=== PATIENT | male | born 1955 | race Caucasian/White ===

== ENCOUNTER 2017-11-12 06:30 | Day surgery (SDC) | payer OTHER ==
[~2017-11-12] VITALS: Ht 177.8 cm; Wt 85.7 kg
[~2017-11-12 06:30] MED LIST: COZAAR100 MG PO; LATANOPROST 0.7.5 ML OP; LIPITOR20 MG PO; LOVASTATIN10 MG PO; NORCO 5-325 TA1 EACH PO
--- NOTE | 2017-11-12 08:21 | NUR ---
11/12/17 0821 Letty Pantoja 0817-PATIENT ARRIVED TO PACU ON 3L NC O2 SAT 95% PATIENT LAYING LEFT LATERAL. ABDOMEN SOFT AND ROUND. PATIENT NONAROUSABLE, IS HARD OF HEARING. RR EVEN.
--- NOTE | 2017-11-12 09:35 | OR ---
[facility] [address], [place] [address] Signed DATE OF OPERATION: 11/12/2017 SURGEON: Karen Siu MD PREOPERATIVE DIAGNOSIS: Laparoscopic low anterior resection for diverticular disease in 2012. POSTOPERATIVE DIAGNOSES: 1. Minimal left-sided diverticulosis. 2. Minimal external hemorrhoids. 3. Colorectal anastomosis at 25 cm. 4. Question bilateral prostate nodules. PROCEDURE: Colonoscopy without biopsy. ESTIMATED BLOOD LOSS: None. INDICATIONS: Elizabet is a 62-year-old gentleman, who I met back in 2007 for his diverticular disease. He continued to have intermittent episodes of diverticular disease, so he underwent a laparoscopic low anterior resection in [address] Jae Corona in [place], [place]. He said he has done wonderful ever since. His bowel movements are fine and he has no family history of colon cancer or polyps. In the meantime, he returns for a followup screening colonoscopy. I gave him a pamphlet in the office on colonoscopy. We looked at that together along with the risks including, but not limited to gas bloating, crampy abdominal pain, bleeding, perforation, requiring surgery, and missed diagnosis. We also discussed the need for IV conscious sedation. He had expressed understanding and wish to proceed. PROCEDURE NOTE: Elizabet was taken into our endoscopy suite and placed in the left lateral decubitus position. He was given IV sedation with 6 mg of Versed and 150 mcg of fentanyl. A digital rectal exam was performed and his prostate is not particularly enlarged. It is a little indurated. He has what feels like two ridges on both sides of his prostate, which may be fine, but he probably should review that and his PSA level with his primary care provider. He also has some small external hemorrhoid tissue. The adult colonoscope was then introduced and advanced under direct visualization all the way into the cecum without difficulty. His prep was quite good. The scope was slowly withdrawn Electronically Signed By: KAREN SIU MD 11/12/17 0935 PATIENT NAME: ELIZABET FENG OPERATIVE REPORT DATE OF : 57 REPORT #: [id number] PHYSICIAN: KAREN SIU MD PCP: NO PRIMARY CARE PHYSICIAN REPORT IS CONFIDENTIAL AND NOT TO BE RELEASED WITHOUT AUTHORIZATION [facility] [address], [place] [address] Signed and we took pictures throughout for photodocumentation. He has just a few scattered diverticula in that remaining left colon. The anastomosis is at 25 cm. It is a circular stapled anastomosis. It is well healed. There is no granulation tissue. There is no ulceration, no stricture. The rectum itself was unremarkable. Upon retroflexion of the scope, I did not find any additional pathology above the anal canal. After this, the gas was suctioned out. The colonoscope removed. Elizabet tolerated the procedure quite well. RECOMMENDATIONS: I will see Elizabet back in my office in 10 years for repeat colonoscopy. MD TINA Sexton/AZL /[id number] cc: MD Jae Sexton MD Dr. Gwen Libby Copies: KAREN SIU MD, DAVID MD ~ Electronically Signed By: KAREN ISU MD 11/12/17 0935 PATIENT NAME: ELIZABET FENG Luis OPERATIVE REPORT DATE OF : 57 REPORT #: [id number] PHYSICIAN: KAREN SIU MD PCP: NO PRIMARY CARE PHYSICIAN REPORT IS CONFIDENTIAL AND NOT TO BE RELEASED WITHOUT AUTHORIZATION
--- NOTE | 2017-11-12 10:39 | NUR ---
PT RESTING, SEEMS TO BE COPING WITH DELAYS TODAY. PT IS SUPPORTED BY HIS . EXTENDED A BLESSING, WILL FOLLOW NEEDED
== END 2017-11-12 09:25 | disposition home or self-care (01) ==
LOC: OPS 06:30 → DS 06:30 → OPS 06:45 → DS 06:45 → OPS 09:25
PROVIDERS: Colon & Rectal Surgery
PROC: 0DJD8ZZ Inspection of Lower Intestinal Tract, Via Natural or Artificial Opening Endoscopic (ICD-10-PCS; principal; 2017-11-12 06:45)
DX: Z12.11 Encounter for screening for malignant neoplasm of colon (principal); K64.4 Residual hemorrhoidal skin tags; K57.30 Diverticulosis of large intestine without perforation or abscess without bleeding; E78.5 Hyperlipidemia, unspecified; Z87.19 Personal history of other diseases of the digestive system; Z98.890 Other specified postprocedural states; Z98.0 Intestinal bypass and anastomosis status; Z88.1 Allergy status to other antibiotic agents; Z79.899 Other long term (current) drug therapy
CPT/HCPCS: 99153; G0500; J2250; J3010; J7120

== ENCOUNTER 2022-04-30 11:32 | Emergency (ER) | payer OTHER ==
[~2022-04-30] VITALS: Ht 177.8 cm; Wt 83.9 kg
[2022-04-30] MEDS ORDERED: ULTRAM50 MG PO (15:49)
== END 2022-04-30 15:50 | disposition home or self-care (01) ==
LOC: ED 11:32
DX: S20.221A Contusion of right back wall of thorax, initial encounter (principal); I10 Essential (primary) hypertension; Z79.899 Other long term (current) drug therapy; W01.0XXA Fall on same level from slipping, tripping and stumbling without subsequent striking against object, initial encounter; Y99.0 Civilian activity done for income or pay
CPT/HCPCS: 71101; 72070; 99283-25